=== PATIENT | female | born 1960 | race Caucasian/White ===

== ENCOUNTER 2017-03-03 19:16 | Emergency (ER) | payer OTHER ==
--- NOTE | 2017-03-03 20:01 | PDOC ---
History of Present Illness - General History Source: Patient Exam Limitations: No Limitations - History of Present Illness Initial Comments: 03/03/17 20:32 The patient is a 57 year old female with a significant past medical history of colon polyps, migraines, hypertension, and GERD, who presents to the ER with intermittent abdominal pain for 3-4 days. Patient reports she developed a headache 4 days ago for which she took two tablets of Advil. She later developed abdominal pain localized to the epigastric region. Patient says the pain does not move. She describes the initial abdominal pain as a burning sensation. She says the abdominal pain gradually worsened, wraps around to the lower back, and now is worse on the LLQ. Patient reports taking Pepto Bismol and Pepcid without relief of symptoms. Patient says she felt bloating yesterday. Patient says she went to her PCP a few months ago and was told she had blood in her urine. Denies heavy lifting Denies fever, chills, cough Denies chest pain, shortness of breath, diaphoresis Denies nausea, vomiting, diarrhea, constipation Surgical Hx: Five vaginal deliveries without complications Family Hx: Mother had gallstones and renal stones Social Hx: Occasional use of alcohol on the weekends Allergies: NKDA <Julianna Ambrocio - Last Filed: 03/04/17 02:46> <Traci Goldman - Last Filed: 03/04/17 05:25> - General Chief Complaint: Pain Stated Complaint: STOMACH ACHE Time Seen by Provider: 03/03/17 20:00 Past History <Julianna Ambrocio - Last Filed: 03/04/17 02:46> - Past Medical History HTN: Yes - Psycho/Social/Smoking Cessation Hx Anxiety: No Suicidal Ideation: No Smoking History: Never smoked Have you smoked in the past 12 months: No Information on smoking cessation initiated: No Hx Alcohol Use: No Drug/Substance Use Hx: No Substance Use Type: None <Traci Goldman - Last Filed: 03/04/17 05:25> - Past Medical History Allergies/Adverse Reactions: Allergies Allergy/AdvReac Type Severity Reaction Status Date / Time No Known Allergies Allergy Verified 03/03/17 20:48 Home Medications: Ambulatory Orders Sumatriptan Succinate [Imitrex] 4 mg SQ PRN PRN 06/20/16 Hydrochlorothiazide 25 mg PO DAILY 06/22/16 Pantoprazole Sodium [Protonix] 40 mg PO DAILY #30 tab 03/04/17 Review of Systems - Review of Systems Able to Perform ROS?: Yes Comments:: 03/03/17 20:32 CONSTITUTIONAL: Absent: fever, no chills, no fatigue EYES: Absent: visual changes ENT: Absent: ear pain, no sore throat CARDIOVASCULAR: Absent: chest pain, no palpitations RESPIRATORY: Absent: cough, no SOB GI: Present: abdominal pain, bloating Absent: no nausea, no vomiting, no constipation, no diarrhea GENITOURINARY: Present: remote history of hematuria Absent: dysuria, no frequency MUSCULOSKELETAL: Absent: back pain, no arthralgia, no myalgia SKIN: Absent: rash NEURO: Present: headache <Uts,Julianna - Last Filed: 03/04/17 02:46> *Physical Exam - Vital Signs Last Vital Signs Temp Pulse Resp BP Pulse Ox 98.3 F 78 18 146/91 94 L 03/03/17 19:47 03/03/17 19:47 03/03/17 19:47 03/03/17 19:47 03/03/17 19:47 - Physical Exam Comments: 03/03/17 20:34 GENERAL: Well-appearing, well-nourished. No apparent distress. HEENT: Normocephalic, atraumatic. PERRL, EOM intact. CARDIOVASCULAR: Normal S1, S2. Regular rate and rhythm. PULMONARY: Clear to auscultation bilaterally. ABDOMEN: Diffuse abdominal tenderness, greater on RUQ. No guarding, no rebound. Soft, non -distended. EXTREMITIES: No flank pain. Normal ROM in all four extremities. No gross deformities. SKIN: Warm, dry. No rash NEUROLOGICAL: No focal neurological deficits. <Uts,Julianna - Last Filed: 03/04/17 02:46> - Vital Signs Last Vital Signs Temp Pulse Resp BP Pulse Ox 98.3 F 78 18 146/91 94 L 03/03/17 19:47 03/03/17 19:47 03/03/17 19:47 03/03/17 19:47 03/03/17 19:47 <Traci Goldman - Last Filed: 03/04/17 05:25> ED Treatment Course - LABORATORY CBC & Chemistry Diagram: 03/03/17 21:18 05/12/17 21:18 - RADIOLOGY Radiograph Interpretation: 03/04/17 02:[address] impression reported by Dr. Nick Alcocer: Lung bases are clear. The visualized cardiac chambers are normal size and configuration. Normal unenhanced liver, gallbladder, pancreas, spleen, adrenal glands and kidneys. The stomach and abdominal small and large bowel are normal. There is no aortic aneurysm. There is no significant retroperitoneal lymphadenopathy. The pelvic small and large bowel are normal. The appendix is normal. The uterus and adnexal structures are normal. Urinary bladder is unremarkable. There is no pelvic free fluid. No discrete pelvic lymphadenopathy is identified. IMPRESSION: No localizing signs for acute pathology. <Julianna Ambrocio - Last Filed: 03/04/17 02:46> - LABORATORY CBC & Chemistry Diagram: 03/03/17 21:18 03/03/17 21:18 <Traci Goldman - Last Filed: 03/04/17 05:25> Medical Decision Making - Medical Decision Making 03/04/17 02:43 Patient Name: Rosalee Goff THIS IS A PRELIMINARYREPORT FROM [facility] EXAM: CT abdomen and pelvis without contrast IMAGES: 436 INDICATION: Diffuse abdominal pain. Rule out colitis. DATE OF SERVICE: 2017-03-04 01:46: 09.0 COMPARISON: none FINDINGS: Lung bases are clear. The visualized cardiac chambers are normal size and configuration. Normal unenhanced liver, gallbladder , pancreas, spleen, adrenal glands and kidneys. The stomach and abdominal small and large bowel are normal. There is no aortic aneurysm. There is no significant retroperitoneal lymphadenopathy. The pelvic small and large bowel are normal. The appendix is normal. The uterus and adnexal structures are normal. Urinary bladder is unremarkable. There is no pelvic free fluid. No discrete pelvic lymphadenopathy is identified. IMPRESSION: No localizing signs for acute pathology. 03/04/17 05:21 Pt comes with diffuse abd pain. Impressive RUQ pain on exam. She has a fam hx significant for GB disease. Her abd sono is normal. No GB wall thickening. Her CT scan is normal also . Labs normal. Pt feeling better with protonix. Her potassium is low and she attributes it to her water pill and we discussed the need for potassium rich foods such a bananans. Pt has normal exam at this time and she is feeling better. She will be sent home with a diagnosis of GERD. <Traci Goldman - Last Filed: 03/04/17 05:25> *DC/Admit/Observation/Transfer - Attestations Scribe Attestion: 03/03/17 20:37 Documentation prepared by Julianna Ambrocio, acting as medical lab director for Traci Goldman MD. <Julianna Ambrocio - Last Filed: 03/04/17 02:46> - Discharge Dispostion Admit: No <Traci Goldman - Last Filed: 03/04/17 05:25> Diagnosis at time of Disposition: Gas pain, GERD (gastroesophageal reflux disease) - Discharge Dispostion Disposition: HOME Condition at time of disposition: Stable - Prescriptions Prescriptions: Pantoprazole Sodium [Protonix] 40 mg PO DAILY #30 tab - Referrals Referrals: Sonny López MD [Staff Physician] - - Patient Instructions Printed Discharge Instructions: DI for Gastroesophageal Reflux Disease (GERD), GERD Diet
[2017-03-03] MEDS ORDERED: PANTOPRAZOLE SODIUM 40 MG in SODIUM CHLORIDE 100 ML IVPB ONE (20:16)
[2017-03-03 20:21] VITALS: BMI 30.7
[2017-03-03] MEDS ORDERED: PANTOPRAZOLE SODIUM 100 ML IVPB ONE (20:52)
[2017-03-03 21:39] LABS: BASOPHIL 0.9 % (0-2.0); EOSINOPHIL 1.2 % (0-4.5); MCH 29.9 pg (25.7-33.7); MCHC 32.7 g/dl (32.0-36.0); MEAN CELL VOLUME 91.3 fl (80-96); MEAN PLT VOLUME 8.7 fl (7.5-11.1); NEUTROPHILS 54.6 % (42.8-82.8); PLATELET COUNT 177 K/MM3 (134-434); RDW 13.2 % (11.6-15.6); WHITE BLOOD COUNT 9.5 K/mm3 (4.0-10.0)
[2017-03-03 21:41] LABS: URINE APPEARANCE CLEAR; URINE BILIRUBIN NEGATIVE (NEGATIVE); URINE BLOOD 2+ (NEGATIVE); URINE COLOR STRAW; URINE GLUCOSE (UA) NEGATIVE (NEGATIVE); URINE KETONE NEGATIVE (NEGATIVE); URINE LEUK ESTERASE NEGATIVE (NEGATIVE); URINE NITRITE NEGATIVE (NEGATIVE); URINE PROTEIN NEGATIVE (NEGATIVE); URINE UROBILINOGEN NEGATIVE E.U./dl (0.2-1.0)
[2017-03-03 21:42] LABS: URINE RBC 4 /hpf (0-3); URINE WBC 1 /hpf (3-5)
[2017-03-03 22:00] LABS: AMYLASE 88 U/L (25-115); ANION GAP 10 (8-16); BILIRUBIN,TOTAL 0.3 mg/dL (0.2-1.0); CALCIUM 9.1 mg/dL (8.5-10.1); CO2 29 mmol/L (21-32); COCKROFT - GAULT 76.5935; CREATININE 0.9 mg/dL (0.55-1.02); GLUCOSE,RANDOM 100 mg/dL (74-106); SGOT/AST 18 U/L (15-37); SGPT/ALT 22 U/L (12-78); TOT PROT 7.5 g/dl (6.4-8.2)
[2017-03-03 22:01] LABS: ALK PHOS 70 U/L (45-117)
[2017-03-04] MEDS ORDERED: POTASSIUM CHLORIDE TABS 20 MEQ TABLET.ER (FP) PO ONE ×2 (00:37→01:55)
[2017-03-04 03:34] VITALS: BP 138/89; PULSE 74; TEMP 98.2
--- NOTE | 2017-03-06 12:52 | EKG ---
Test Reason : Blood Pressure : / mmHG Vent. Rate : 067 BPM Atrial Rate : 067 BPM P-R Int : 196 ms QRS Dur : 076 ms QT Int : 458 ms P-R-T Axes : 034 034 063 degrees QTc Int : 483 ms NORMAL SINUS RHYTHM POSSIBLE LEFT ATRIAL ENLARGEMENT BORDERLINE ECG WHEN COMPARED WITH ECG OF 20-JUN-2016 23:14, QT HAS LENGTHENED Confirmed by DERIC OBANDO MD ([id number]) on 03/06/2017 12:52:41 PM Referred By: Confirmed By:DERIC OBANDO MD
== END 2017-03-04 03:13 | disposition home or self-care (01) ==
LOC: SUPCPDRO 19:16 → JER 19:16
PROC: 3E033GC Introduction of Other Therapeutic Substance into Peripheral Vein, Percutaneous Approach (ICD-10-PCS; principal; 2017-03-03)
DX: K21.9 Gastro-esophageal reflux disease without esophagitis (principal); R14.1 Gas pain
CPT/HCPCS: 36415; 74176-TC; 76705-TC; 80053; 81003; 81015; 82150; 83690; 85025; 93005; 93010; 96365; 99283-25

== ENCOUNTER 2021-06-30 17:00 | Emergency (ER) | payer OTHER ==
[2021-06-30 17:09] VITALS: BP 147/83; PULSE 68; TEMP 98.2; BMI 32.9
[2021-06-30] MEDS ORDERED: KETOROLAC TROMETHAMINE 30 MG/1 ML VIAL IVPUSH ONE (18:26)
[2021-06-30] MEDS ORDERED: KETOROLAC TROMETHAMINE 30 MG/1 ML VIAL ONE (18:43)
[2021-06-30] MEDS ORDERED: SODIUM CHLORIDE 0.9% 500 ML INFUS.BAG IV ONE (18:50)
[2021-06-30 19:15] LABS: URINE APPEARANCE CLEAR; URINE BILIRUBIN NEGATIVE (NEGATIVE); URINE COLOR YELLOW; URINE GLUCOSE (UA) NEGATIVE (NEGATIVE); URINE KETONE NEGATIVE (NEGATIVE); URINE LEUK ESTERASE NEGATIVE (NEGATIVE); URINE NITRITE NEGATIVE (NEGATIVE); URINE PROTEIN NEGATIVE (NEGATIVE); URINE UROBILINOGEN 0.2 mg/dL (0.2-1.0)
[2021-06-30 19:31] LABS: BASO % 0.4 % (0-2.0); EOS % 1.5 % (0-4.5); HEMATOCRIT 39.1 % (32.4-45.2); HEMOGLOBIN 13.2 GM/dL (10.7-15.3); MCH 31.3 pg (25.7-33.7); MCHC 33.7 g/dl (32.0-36.0); MEAN CELL VOLUME 92.9 fl (80-96); MEAN PLT VOLUME 8.7 fl (7.5-11.1); MONO % 5.8 % (3.8-10.2); NEUT % 49.3 % (42.8-82.8); PLATELET COUNT 163 10^3/uL (134-434); RBC 4.21 M/mm3 (3.60-5.2); RDW 13.6 % (11.6-15.6); WHITE BLOOD COUNT 7.4 K/mm3 (4.0-10.0)
[2021-06-30 19:38] LABS: ALBUMIN 3.6 g/dl (3.4-5.0); BLOOD UREA NITROGEN 15.7 mg/dL (7-18); CALCIUM 8.8 mg/dL (8.5-10.1)
[2021-06-30 19:41] LABS: CREATININE 0.6 mg/dL (0.55-1.3)
[2021-06-30 19:43] LABS: BILIRUBIN,TOTAL 0.4 mg/dL (0.2-1); TOT PROT 7.5 g/dl (6.4-8.2)
== END 2021-06-30 21:14 | disposition home or self-care (01) ==
LOC: JER 17:00
PROC: 3E0333Z Introduction of Anti-inflammatory into Peripheral Vein, Percutaneous Approach (ICD-10-PCS; principal; 2021-06-30)
DX: R10.32 Left lower quadrant pain (principal)
CPT/HCPCS: 36415; 74176-TC; 80053; 81003; 85025; 87086; 99284-25